=== PATIENT | male | born 1985 | race Caucasian/White ===

== ENCOUNTER 2020-07-23 08:47 | Day surgery (SDC) | payer BC ==
[~2020-07-23 08:47] MED LIST: Dexamethasone 4 MG/ML 5 ML MDV ONE; Lactated Ringers 1,000 ML IV SCH; Midazolam 1 MG/ML 2 ML SDV ONE; Ondansetron 4 MG/2 ML SDV ONE; Propofol 200 MG/20 ML SDV ONE; ceFAZolin 2 GM in Premix Bag 1 BAG IV SCH; fentaNYL 100 MCG/2 ML SDV ONE
[2020-07-23] MEDS ORDERED: Lidocaine 1% 20 ML MDV ONE (09:21)
[2020-07-23] MEDS ORDERED: Bupivacaine 25%/EPINEPHrine/PF 30 ML ONE (09:21)
--- NOTE | 2020-07-23 09:38 | PCM.PREANE ---
Preanesthetic Assessment - Anesthesia/Transfusion/Family Hx Anesthesia History: Prior Anesthesia Without Reaction Family History of Anesthesia Reaction: No Transfusion History: No Prior Transfusion(s) - Review of Systems General: No Symptoms Pulmonary: No Symptoms Cardiovascular: No Symptoms Gastrointestinal: No Symptoms Neurological: No Symptoms Other: Reports: None - Physical Assessment NPO Status Date: 07/23/20 NPO Status Time: 00:01 Vital Signs: Last Vital Signs Temp 97.3 F 07/23/20 09:33 Pulse 65 07/23/20 09:33 Resp 16 07/23/20 09:33 BP 136/73 07/23/20 09:33 Pulse Ox 100 07/23/20 09:33 Height: 5 ft 10 in Weight: 175 lb ASA Class: 1 Mental Status: Alert & Oriented x3 Airway Class: Mallampati = 2 Dentition: Reports: Normal Dentition ROM/Head Extension: Full Lungs: Clear to Auscultation, Normal Respiratory Effort Cardiovascular: Regular Rate, Regular Rhythm - Allergies Allergies/Adverse Reactions: Allergies Allergy/AdvReac Type Severity Reaction Status Date / Time No Known Allergies Allergy Verified 07/23/20 09:31 - Anesthesia Plan Pre-Op Medication Ordered: None - Acknowledgements Anesthesia Type Planned: General Anesthesia Pt an Appropriate Candidate for the Planned Anesthesia: Yes Alternatives and Risks of Anesthesia Discussed w Pt/Guardian: Yes Pt/Guardian Understands and Agrees with Anesthesia Plan: Yes Additional Comments: npo tob none etoh rare no cv problems par no questions PreAnesthesia Questionnaire HEENT History: Reports: None Cardiovascular History: Reports: None Respiratory History: Reports: None Gastrointestinal History: Reports: None Genitourinary History: Reports: None Musculoskeletal History: Reports: None Neurological History: Reports: None Psychiatric History: Reports: None Endocrine/Metabolic History: Reports: None Hematologic History: Reports: None Immunologic History: Reports: None Oncologic (Cancer) History: Reports: None Dermatologic History: Reports: None - Past Surgical History Head Surgeries/Procedures: Reports: None HEENT Surgical History: Reports: None Cardiovascular Surgical History: Reports: None Respiratory Surgical History: Reports: None GI Surgical History: Reports: Appendectomy Male Surgical History: Reports: None Endocrine Surgical History: Reports: None Neurological Surgical History: Reports: None Musculoskeletal Surgical History: Reports: Other (See Below) Other Musculoskeletal Surgeries/Procedures:: right wrist surgery Oncologic Surgical History: Reports: None Dermatological Surgical History: Reports: None - SUBSTANCE USE Tobacco Use Status *Q: Former Tobacco User Tobacco Use Within Last Twelve Months: No Recreational Drug Type: Reports: Marijuana/Hashish Recreational Drug Last Use: 2 weeks ago - HOME MEDS Home Medications: Home Meds [employer] [place] 1 dose PO DAILY 07/21/20 [History] - CURRENT (IN HOUSE) MEDS Current Meds: Current Medications Lactated Ringer's (Ringers, Lactated) 1,000 mls @ 100 mls/hr IV ASDIRECTED JOSE ALFREDO Last Admin: 07/23/20 09:30 Dose: 100 mls/hr Documented by: Cefazolin Sodium/Dextrose 2 gm (/ Premix) 50 mls @ 100 mls/hr IV ONCALL JOSE ALFREDO Discontinued Medications Dexamethasone (Dexamethasone 4 Mg/Ml 5 Ml Mdv) Confirm Administered Dose 20 mg .ROUTE .STK-MED ONE Stop: 07/23/20 07:33 Fentanyl (Fentanyl 100 Mcg/2 Ml Sdv) Confirm Administered Dose 100 mcg .ROUTE .STK-MED ONE Stop: 07/23/20 07:32 Bupivacaine HCl/Epinephrine Bitart (Sensorc Mpf 0.25%-Epi [id number]) Confirm Administered Dose 30 mls @ as directed .ROUTE .STK-MED ONE Stop: 07/23/20 09:22 Lidocaine HCl (Lidocaine 1% 5 Ml Sdv) Confirm Administered Dose 5 ml .ROUTE .STK-MED ONE Stop: 07/23/20 07:33 Lidocaine HCl (Lidocaine 1% 20 Ml Mdv) Confirm Administered Dose 20 ml .ROUTE .STK-MED ONE Stop: 07/23/20 09:22 Midazolam HCl (Midazolam 1 Mg/Ml 2 Ml Sdv) Confirm Administered Dose 2 mg .ROUTE .STK-MED ONE Stop: 07/23/20 07:32 Ondansetron HCl (Ondansetron 4 Mg/2 Ml Sdv) Confirm Administered Dose 4 mg .ROUTE .STK-MED ONE Stop: 07/23/20 07:33 Propofol (Propofol 200 Mg/20 Ml Sdv) Confirm Administered Dose 200 mg .ROUTE .STK-MED ONE Stop: 07/23/20 07:32
[2020-07-23] MEDS ORDERED: Sodium Chloride 0.9% 20 ML ONE (11:12)
[2020-07-23] MEDS ORDERED: ceFAZolin 1 GM Vial ONE (11:12)
[2020-07-23] MEDS ORDERED: fentaNYL 100 MCG/2 ML SDV ONE (11:30)
[2020-07-23] MEDS ORDERED: Ketorolac 30 MG/ML SDV ONE (11:34)
--- NOTE | 2020-07-23 11:53 | PCM.OPNOTE ---
- General Post-Op/Procedure Note Date of Surgery/Procedure: 07/23/20 Operative Procedure(s): Left knee arthroscopy and partial medial meniscectomy Findings: Medial compartment displaced oblique medial meniscus tear with grade 0 femoral and tibial cartilage Notch showed anterior cruciate ligament present Lateral compartment showed normal lateral meniscus with grade 0 femoral and tibial cartilage Patellofemoral compartment showed normal patella and trochlear groove cartilage No loose bodies Pre Op Diagnosis: Left displaced medial meniscus tear Post-Op Diagnosis: Left displaced medial meniscus tear Anesthesia Technique: General LMA Primary Surgeon: Brock Baum Office Rental Clerk: Maty Wilburn Office Rental Clerk Was Necessary: Patient positioning intraoperatively to open medial compartment for arthroscopy Pathology: None EBL in mLs: 10 Complications: None Free Text/Narrative:: Patient has chronic medial knee mechanical symptoms consistent with a meniscus tear. The meniscus tear was confirmed with MRI. The risks and benefits of arthroscopy in partial medial meniscectomy were discussed with the patient. All questions were answered. Patient elected to proceed with surgery. Patient was medically cleared for surgery. Patient was taken to the operating room. After adequate general anesthesia by LMA, he remained in a supine position. The end of the bed was broken. The left lower extremities prepped and draped in the usual sterile manner. Arthroscopy was performed with medial parapatellar, lateral parapatellar, medial accessory, and superior medial portals. The diagnostic findings are noted above. A partial medial meniscectomy was performed with punches and a shaver back to a stable rim. Stable rim was confirmed with probing. Instruments were removed from the joint, fluid was expressed from the joint, and Marcaine was injected in the subcutaneous tissue. Portals were closed with suture. Sterile dressing was applied. Patient was accompanied the recovery room in stable condition. Restrictions: Patient is weightbearing as tolerated on his left lower extremity with assistive device as needed. Patient should not get the incisions wet for 3 days after which time he may shower. He should not soak the knee for 2 weeks until the stitches are removed. Pain management: Ibuprofen and hydrocodone Venous thromboembolism prophylaxis: Not indicated for arthroscopic surgery Prophylactic antibiotics: Not indicated for outpatient surgery
[2020-07-23] MEDS ORDERED: Acetaminophen/HYDROcodone 325-5 MG Tab PO ONE (12:30)
--- NOTE | 2020-07-23 12:45 | PCM.POSTAN ---
POST ANESTHESIA ASSESSMENT - MENTAL STATUS Mental Status: Alert (no anesthetic problems), Oriented - VITAL SIGNS Vital Signs: Last Vital Signs Temp 97.5 F 07/23/20 11:55 Pulse 61 07/23/20 12:10 Resp 15 07/23/20 12:10 BP 116/66 07/23/20 12:10 Pulse Ox 99 07/23/20 12:10 - RESPIRATORY Respiratory Status: Respiratory Rate WNL, Airway Patent, O2 Saturation Stable - CARDIOVASCULAR CV Status: Pulse Rate WNL, Blood Pressure Stable - GASTROINTESTINAL GI Status: No Symptoms - POST OP HYDRATION Hydration Status: Adequate & Stable
--- NOTE | 2020-07-23 13:01 | PCM48HPAN ---
Post Anesthesia Note - EVALUATION WITHIN 48HRS OF ANESTHETIC Vital Signs in Normal Range: Yes Patient Participated in Evaluation: Yes Respiratory Function Stable: Yes Airway Patent: Yes Cardiovascular Function Stable: Yes Hydration Status Stable: Yes Pain Control Satisfactory: Yes Nausea and Vomiting Control Satisfactory: Yes Mental Status Recovered: Yes Vital Signs: Last Vital Signs Temp 97.5 F 07/23/20 11:55 Pulse 61 07/23/20 12:10 Resp 15 07/23/20 12:10 BP 116/66 07/23/20 12:10 Pulse Ox 99 07/23/20 12:10
[2020-07-23] MEDS ORDERED: Desflurane 240 ML Bottle ONE (15:08)
== END 2020-07-23 13:20 | disposition home or self-care (01) ==
LOC: MW.SDS 08:47
PROVIDERS: ATTEND Orthopaedic Surgery
DX: S83.242A Other tear of medial meniscus, current injury, left knee, initial encounter (principal); Z87.891 Personal history of nicotine dependence; X58.XXXA Exposure to other specified factors, initial encounter
CPT/HCPCS: 29881; A9270; J0690; J1100; J1885; J2250; J2405; J2704; J3010; J7120

== ENCOUNTER 2021-05-03 23:12 | Emergency (ER) | payer BC | END 2021-05-04 00:04 | LOC: MW.ED 23:12 | DX: Z02.89 Encounter for other administrative examinations (principal) | CPT/HCPCS: 99282; 99283 ==

== ENCOUNTER 2023-05-02 20:22 | Emergency (ER) | payer BC | END 2023-05-02 23:00 | disposition left against medical advice (07) | LOC: MW.ED 20:22 | DX: F10.139 Alcohol abuse with withdrawal, unspecified (principal); Z53.29 Procedure and treatment not carried out because of patient's decision for other reasons; Y90.9 Presence of alcohol in blood, level not specified | CPT/HCPCS: 99281; 99283 ==